=== PATIENT | male | born 1995 | race African-American/Black ===

== ENCOUNTER 2021-08-19 02:04 | Emergency (ER) | payer OTHER ==
--- NOTE | 2021-08-19 02:47 | ED Physician Documentation ---
PD HPI CHEST PAIN - Stated complaint Stated Complaint: CHEST PX - Chief complaint Chief Complaint: Cardiac - History obtained from History obtained from: Patient - History of Present Illness Timing - onset: Enter time (18:00), Today Timing - onset during: Light activity Timing - details: Abrupt onset Pain level now: 2 Quality: Pain Radiation: Back Improved by: Nothing Worsened by: Inspiration Associated symptoms: No: Shortness of air, Diaphoresis, Feeling faint / dizzy, Palpitations, Cough Similar symptoms before: Has not had sx before Recently seen: Not recently seen - Additional information Additional information: c/o sudden onset left chest pain at 6 PM tonight while at work undertaking light activity. Pain radiates to upper back and is pleuritic. Denies h/o similar symptoms. Review of Systems Constitutional: reports: Reviewed and negative Cardiac: reports: Chest pain / pressure. denies: Palpitations, Pedal edema, Calf pain Respiratory: reports: Reviewed and negative GI: reports: Reviewed and negative Musculoskeletal: denies: Extremity swelling PD PAST MEDICAL HISTORY - Past Medical History Past Medical History: No - Past Surgical History Past Surgical History: No - Present Medications Home Medications: Ambulatory Orders Medication Instructions Recorded Confirmed No Known Home Medications 08/19/21 08/19/21 - Allergies Allergies/Adverse Reactions: Allergies Allergy/AdvReac Type Severity Reaction Status Date / Time No Known Drug Allergies Allergy Verified 08/19/21 02:18 - Social History Does the pt smoke?: No Smoking Status: Never smoker Does the pt drink ETOH?: No Does the pt have substance abuse?: No - Immunizations Immunizations are current?: Yes PD ED PE NORMAL - Vitals Vital signs reviewed: Yes - General General: Alert and oriented X 3, No acute distress, Well developed/nourished - HEENT HEENT: Moist mucous membranes - Cardiac Cardiac: No murmur, No gallop, No rub - Respiratory Respiratory: No respiratory distress, Clear bilaterally - Abdomen Abdomen: Soft, Non tender - Extremities Extremities: No edema PD ED PE EXPANDED - Cardiac Cardiac: Tachy, Regular Rhythm Results - Vitals Vitals: Oxygen O2 Source Room air - EKG (time done) No standard instances Rate: Rate (enter#) (105) Rhythm: Sinus tachycardia Dingess: Normal Intervals: Normal OK QRS: Normal Ischemia: Normal ST segments, T wave inversion (II, III, aVF) - Labs Labs: Laboratory Tests 08/19/21 08/19/21 08/19/21 03:30 03:30 03:30 WBC 6.7 RBC 4.68 L Hgb 14.5 Hct 41.6 L MCV 88.9 MCH 31.0 MCHC 34.9 RDW 12.6 Plt Count 211 MPV 10.4 Neut # (Auto) 4.6 Lymph # (Auto) 1.5 Burnet # (Auto) 0.5 Eos # (Auto) 0.1 Baso # (Auto) 0.0 Absolute Nucleated RBC 0.00 Nucleated RBC % 0.0 Sodium 138 Potassium 3.5 Chloride 102 Carbon Dioxide 26 Anion Gap 10.0 BUN 18 Creatinine 1.3 H Estimated GFR (MDRD) 82 L Glucose 109 H Calcium 9.3 Total Bilirubin 1.0 AST 43 H ALT 45 Alkaline Phosphatase 59 Troponin I High Sens 9.0 Total Protein 7.5 Albumin 4.4 Globulin 3.1 Albumin/Globulin Ratio 1.4 Lipase 28 - Rads (name of study) CTA chest (PE study) Radiology: Prelim report reviewed, See rad report PD MEDICAL DECISION MAKING - ED course Complexity details: reviewed results, re-evaluated patient, considered differential, d/w patient ED course: c/o pleuritic chest pain since 6 PM today. Reassuring blood tests, with creatinine of 1.3 noted (normal BUN). His EKG shows sinus tachycardia. Because of his heart rate, cannot r/o using PERC criteria. CTA chest performed and this shows no evidence of PE nor any other acute process. Blood tests include normal hs-cTn. Cause of his symptoms is not apparent at this time. Results d/w patient, return precautions reviewed, instructed to follow up with PMD. There was a delay in performing the CTA chest; when the radiology receptionist reviewed IV contrast checklist with patient, patient then indicated he thinks he might have been told by a parent that he only has one kidney. I performed a bedside ultrasound and was easily able to visualize bilateral kidneys Departure - Departure Disposition: 01 Home, Self Care Clinical Impression: Atypical chest pain Condition: Good Instructions: ED Chest Pain Atypical Unkn Cause, ED Chest Pain Pleurisy Follow-Up: [facility] [Provider Group] Comments: The cause of your pain is not apparent at this time. The tests performed tonight are reassuring, with no concerning nor diagnostic findings. As we discussed, the blood tests are unremarkable except for a very mild abnormality in one of your kidney function tests (creatinine 1.3). This would not explain your symptoms and the abnormality is very mild and can be reevaluated by your primary care provider. The CT scan was very helpful in that it showed no evidence of infection (such as pneumonia), collapsed lung, blood clots in the lung, or any other abnormalities. Normal test results does not mean there is not a cause of your symptoms, but based on these test results, it is safe to discharge you home at this time. You should follow up with your primary care provider this week for reevaluation, return to the emergency department if worse in any way. Discharge Date/Time: 08/19/21 06:36
[2021-08-19] MEDS ORDERED: IOVERSOL 320 100 ML VIAL IVP ONE ×2 (03:36→05:22)
[2021-08-19 03:38] LABS: BASOPHILS % (AUTO) 0.3 %; EOSINOPHILS # (AUTO) 0.1 10^3/uL (0.0-0.7); EOSINOPHILS % (AUTO) 0.9 %; HCT - HEMATOCRIT 41.6 % (42.0-52.0); HGB - HEMOGLOBIN 14.5 g/dL (14.0-18.0); LYMPHOCYTES # (AUTO) 1.5 10^3/uL (1.5-3.5); LYMPHOCYTES % (AUTO) 22.7 %; MEAN CORPUSCULAR HGB CONC 34.9 g/dL (32.0-36.0); MEAN CORPUSCULAR VOLUME 88.9 fL (80.0-94.0); MEAN PLATELET VOLUME 10.4 fL (7.4-11.4); MONOCYTES # (AUTO) 0.5 10^3/uL (0.0-1.0); MONOCYTES % (AUTO) 7.5 %; NEUTROPHILS # (AUTO) 4.6 10^3/uL (1.5-6.6); NEUTROPHILS % (AUTO) 68.3 %; PLT - PLATELET COUNT 211 10^3/uL (130-450); RED BLOOD COUNT 4.68 10^6/uL (4.70-6.10); RED CELL DISTRIBUTION WIDTH 12.6 % (12.0-15.0); WHITE BLOOD COUNT 6.7 x10^3/uL (4.8-10.8)
[2021-08-19 03:50] LABS: ALBUMIN 4.4 g/dL (3.2-5.5); ALBUMIN/GLOBULIN RATIO 1.4 (1.0-2.2); CALCIUM 9.3 mg/dL (8.5-10.3); CREATININE 1.3 mg/dL (0.6-1.2); POTASSIUM 3.5 mmol/L (3.5-5.0); TOTAL PROTEIN 7.5 g/dL (6.7-8.2)
[2021-08-19] MEDS ORDERED: KETOROLAC 30 MG/ML VIAL IVP STA (06:09)
[2021-08-19 06:29] VITALS: BP 145/69
--- NOTE | 2021-08-19 07:39 | CT Report ---
PROCEDURE: ANGIO CHEST W/WO INDICATIONS: left-sided pleuritic chest pain CONTRAST: IV CONTRAST: Optiray 320 ml: 80 PO CONTRAST: *NO PO CONTRAST TECHNIQUE: After the administration of intravenous contrast, 2 mm axial images were acquired from the pulmonary apices to the posterior costophrenic angles during the arterial phase. In addition, 1 mm lung kernel and 5 mm soft tissue kernel reconstructions were performed. 3-dimensional coronal oblique maximum int ensity projection (MIP) reformats, 8 mm axial MIP, and 5 mm coronal and sagittal MPR reformats were t hen performed through the thorax. For radiation dose reduction, the following was used: automated exp osure control, adjustment of mA and/or kV according to patient size. COMPARISON: None FINDINGS: Image quality: Excellent. Pulmonary arteries: Pulmonary arteries are normal in size, and demonstrate no intraluminal filling d efects to suggest central pulmonary embolism. Lungs and pleura: Lungs are clear. No pleural effusions or pneumothorax. Central and peripheral ai rways are patent. Mediastinum: Heart size is normal, without pericardial effusion. No mediastinal or hilar adenopathy . Thoracic aorta is normal in caliber and enhancement. Esophagus is normal in caliber, without hiat al hernia. Bones and chest wall: No suspicious bony lesions. Ribs and thoracic spine appear intact throughout. No axillary or supraclavicular adenopathy. The thyroid is normal in size and there are no incident al findings. Abdomen: Visualized upper abdominal solid organs appear normal in the early arterial phase of enhanc ement. IMPRESSION: Negative for acute pulmonary emboli. No evidence for acute right-sided heart strain. No acute cardiop ulmonary abnormalities. No focal airspace disease. No significant discrepancy with initial interpretation by overnight radiologist. CLINICAL RECOMMENDATION STATEMENTS: In patients <35 years with an ITN detected on CT, MRI, or extrathyroidal ultrasound, the Committee re commends further evaluation with dedicated thyroid ultrasound if the nodule is "e1 cm and has no susp icious imaging features, and if the patient has normal life expectancy. In patients "e35 years with an ITN detected on CT, MRI, or extrathyroidal ultrasound, the Committee r ecommends further evaluation with dedicated thyroid ultrasound if the nodule is "e1.5 cm and has no s uspicious imaging features, and if the patient has normal life expectancy. (ACR, 2014) Reviewed by: Guy Montiel MD on 08/19/2021 7:38 AM PDT Approved by: Guy Montiel MD on 08/19/2021 7:38 AM PDT Station ID: [id number]
== END 2021-08-19 06:36 | disposition home or self-care (01) ==
LOC: ED 02:04
DX: R07.89 Other chest pain (principal)
CPT/HCPCS: 36415; 71275; 80053; 83690; 84484; 85025; 93005; 96374; 99282; 99284; Q9967

== ENCOUNTER 2022-12-30 06:25 | Emergency (ER) | payer OTHER ==
[2022-12-30 06:40] VITALS: BP 154/102; O2SAT 99
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
[2022-12-30] MEDS ORDERED: methocarbamoL 500 MG TABLET PO STA (07:15)
[2022-12-30] MEDS ORDERED: IBUPROFEN 800 MG TABLET PO STA (07:15)
[2022-12-30] MEDS ORDERED: ACETAMINOPHEN 325 MG TABLET PO STA (07:15)
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
[2022-12-30 09:55] LABS: B. PARAPERTUSSIS- RESP PCR PAN NOT DETECTED; B. PERTUSSIS- RESP PCR PANEL NOT DETECTED; C. PNEUMONIAE- RESP PCR PANEL NOT DETECTED; CORONAVIRUS 229E-RESP PCR NOT DETECTED; CORONAVIRUS HKU1-RESP PCR NOT DETECTED; CORONAVIRUS NL63-RESP PCR NOT DETECTED; CORONAVIRUS OC43-RESP PCR NOT DETECTED; HUMAN METAPNEUMOVIRUS NOT DETECTED; INFLUENZA A- RESP PCR PANEL NOT DETECTED; INFLUENZA B - RESP PCR PANEL NOT DETECTED; M. PNEUMONIAE- RESP PCR PANEL NOT DETECTED; PARAINFLUENZA VIRUS 1 NOT DETECTED; PARAINFLUENZA VIRUS 2 NOT DETECTED; PARAINFLUENZA VIRUS 3 NOT DETECTED; PARAINFLUENZA VIRUS 4 NOT DETECTED; RHINOVIRUS/ENTEROVIRUS DETECTED; RSV- RESP PCR PANEL NOT DETECTED; SARS-CoV-2 -RESP PCR PANEL NOT DETECTED
== END 2022-12-30 08:24 | disposition home or self-care (01) ==
LOC: ED 06:25
DX: S29.012A Strain of muscle and tendon of back wall of thorax, initial encounter (principal); V89.2XXA Person injured in unspecified motor-vehicle accident, traffic, initial encounter; Y92.410 Unspecified street and highway as the place of occurrence of the external cause; Z20.822 Contact with and (suspected) exposure to COVID-19
CPT/HCPCS: 72070; 87633; 99284; A9270